=== PATIENT | female | born 1955 | race Caucasian/White ===

== ENCOUNTER 2018-03-26 11:41 | Emergency (ER) | payer MEDICAID ==
--- NOTE | 2018-03-26 11:46 | EDM.PDOC ---
<Shellie Saravia R - Last Filed: 03/26/18 12:11> ED HPI GENERAL MEDICAL PROBLEM - General Chief Complaint: Neuro Symptoms/Deficits Stated Complaint: DIZZY SPELLS Time Seen by Provider: 03/26/18 12:00 Source of Information: Reports: Patient, RN, RN Notes Reviewed History Limitations: Reports: No Limitations - History of Present Illness INITIAL COMMENTS - FREE TEXT/NARRATIVE: Patient presents to the Emergency department with complaints of dizziness and nausea. She has had the dizziness and nausea for one week with sudden onset when getting up to the bathroom. No known triggers. She vomited once last week. The dizziness is worsened when patient turns her head. Describes dizziness as the room spinning. Denies falling but has almost fallen multiple times. She has had decreased appetite. Dizziness is limiting her activity. Denies fever and chills. Had a cold last month. She reports history of anxiety and feels anxious currently. Denies previous episode of dizziness. Onset: Sudden Onset Date: 03/19/18 Onset Time: 05:00 Duration: Week(s): (1), Getting Worse Improves with: Reports: None Worsens with: Reports: None Associated Symptoms: Reports: Nausea/Vomiting, Other (no vision changes). Denies: Headaches, Syncope - Related Data Allergies Allergy/AdvReac Type Severity Reaction Status Date / Time No Known Allergies Allergy Verified 03/26/18 12:01 Home Meds: Home Meds . [No Known Home Meds] 08/10/17 [History] Past Medical History HEENT History: Reports: None Cardiovascular History: Reports: None Respiratory History: Reports: None Gastrointestinal History: Reports: Irritable Bowel Syndrome Genitourinary History: Reports: None [employer] History: Reports: None Musculoskeletal History: Reports: Arthritis Neurological History: Reports: None Psychiatric History: Reports: Anxiety Endocrine/Metabolic History: Reports: None Hematologic History: Reports: None Immunologic History: Reports: None Oncologic (Cancer) History: Reports: None Dermatologic History: Reports: None - Infectious Disease History Infectious Disease History: Reports: Chicken Pox, Measles, Mumps - Past Surgical History Head Surgeries/Procedures: Reports: None Other Female Surgeries/Procedures: patient states breast, cervical and ovarian cysts Other Musculoskeletal Surgeries/Procedures:: 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 ED EXAM, DIZZINESS - Physical Exam Exam: See Below Exam Limited By: No Limitations General Appearance: Alert, WD/WN, No Apparent Distress Eye Exam: Bilateral Eye: Nystagmus Nystagmus: worsens with head to R, reproducible (greyson-hallpike manvuer) Ears: Normal External Exam, Normal Canal, Hearing Grossly Normal, Normal TMs Nose: Normal Inspection, Normal Mucosa, No Blood Throat/Mouth: Normal Inspection, Normal Lips (dry lips), Normal Oropharynx, Normal Voice, No Airway Compromise Head Exam: Atraumatic, Normocephalic Vertigo: reproducible (postion changes) Neck: Normal Inspection, Supple, Non-Tender, Full Range of Motion Respiratory/Chest: No Respiratory Distress, Lungs Clear, Normal Breath Sounds, No Accessory Muscle Use, Chest Non-Tender Cardiovascular: Normal Peripheral Pulses, Regular Rate, Rhythm, No Edema, No Gallop, No JVD, No Murmur, No Rub GI/Abdominal: Normal Bowel Sounds, Soft, Non-Tender, No Organomegaly, No Distention, No Abnormal Bruit, No Mass Neurological: Alert, Normal Mood/Affect, Normal Dorsiflexion, CN II-XII Intact, Normal Plantar Flexion, Normal Gait, Normal Reflexes, No Motor/Sensory Deficits , Oriented x 3 Back Exam: Normal Inspection, Full Range of Motion, NT Extremities: Normal Inspection, Normal Range of Motion, Non-Tender, No Pedal Edema, Normal Capillary Refill Psychiatric: Normal Affect, Anxious Skin Exam: Warm, Dry, Intact, Normal Color, No Rash Course - Vital Signs Last Recorded V/S: Last Vital Signs Temp 36.6 C 03/26/18 11:55 Pulse 66 03/26/18 11:55 Resp 17 03/26/18 11:55 BP 157/101 H 03/26/18 11:55 Pulse Ox 91 L 03/26/18 11:55 Orthostatic Blood Pressure [ 142/104 Standing] Orthostatic Blood Pressure [ 139/94 Sitting] Orthostatic Blood Pressure [ 144/86 Supine] - Orders/Labs/Meds Orders: Active Orders 24 hr Category Date Time Status Orthostatic Vital Signs [RC] ASDIRECTED Care 03/26/18 12:06 Active UA RFX DASIA AND CULT IF INDIC [URIN] Urgent Lab 03/26/18 12:06 Ordered Labs: Laboratory Tests 03/26/18 03/26/18 Range/Units 12:14 12:14 WBC 12.2 H (5.0-10.0) 10^3/uL RBC 4.15 L (4.2-5.4) 10^6/uL Hgb 13.2 (12.0-16.0) g/dL Hct 40.2 (37.0-47.0) % MCV 96.9 (80-100) fL MCH 31.8 (27.0-34.0) pg MCHC 32.8 L (33.0-35.0) g/dL Plt Count 335 (150-450) 10^3/uL Neut % (Auto) 69.3 (42.2-75.2) % Lymph % (Auto) 23.4 (20.5-50.1) % [place] % (Auto) 6.1 (2-8) % Eos % (Auto) 1.0 (1.0-3.0) % Baso % (Auto) 0.2 (0.0-1.0) % Sodium 136 (135-145) mmol/L Potassium 4.3 (3.6-5.0) mmol/L Chloride 103 (101-111) mmol/L Carbon Dioxide 21.0 (21.0-31.0) mmol/L Anion Gap 16.3 BUN 18 (7-18) mg/dL Creatinine 0.7 (0.6-1.3) mg/dL Est Cr Clr Drug Dosing 77.01 mL/min Estimated GFR (MDRD) > 60 BUN/Creatinine Ratio 25.71 Glucose 118 H (74-105) mg/dL Calcium 9.6 (8.4-10.2) mg/dl Total Bilirubin 0.4 (0.2-1.0) mg/dL AST 22 (10-42) IU/L ALT 18 (10-60) IU/L Alkaline Phosphatase 70 (42-121) IU/L Total Protein 7.1 (6.7-8.2) g/dl Albumin 4.2 (3.2-5.5) g/dl Globulin 2.9 Albumin/Globulin Ratio 1.45 - Re-Assessments/Exams Free Text/Narrative Re-Assessment/Exam: 03/26/18 12:45 J. Brekhus (Physical Therapy) at bedside. Lacrosse- Hallpike maneuvers indicated right Benign Paroxysmal Positional Vertigo. Kev maneuvers done. Patient to follow up in Physical Therapy tomorrow. Departure - Departure Time of Disposition: 12:48 Disposition: Home, Self-Care 01 Condition: Fair Clinical Impression: Benign paroxysmal positional vertigo Qualifiers: Laterality: right Qualified Code(s): H81.11 - Benign paroxysmal vertigo, right ear - Discharge Information *PRESCRIPTION DRUG MONITORING PROGRAM REVIEWED*: Not Applicable *COPY OF PRESCRIPTION DRUG MONITORING REPORT IN PATIENT LUIS A: Not Applicable Instructions: Benign Positional Vertigo Forms: ED Department Discharge Additional Instructions: RX: Maclizine 25mg (Do not drive while taking this medication) Referral to be made by PCP for Physical therapy. Do not lay flat or on the right side for next 2 days. Sleep in recliner is possible. <Maxim Woodruff - Last Filed: 03/26/18 12:57> Course - Re-Assessments/Exams Free Text/Narrative Re-Assessment/Exam: 03/26/18 12:56 I personally performed or re-performed the physical examination and medical decision making. I have verified all student documentation or findings, including history, physical exam and/or medical decision making.
[2018-03-26 12:41] LABS: ANION GAP 16.3; CHLORIDE,CL 103 mmol/L (101-111); SODIUM,NA 136 mmol/L (135-145)
== END 2018-03-26 13:03 | disposition home or self-care (01) ==
LOC: DL.ED 11:41
DX: H81.11 Benign paroxysmal vertigo, right ear (principal)
CPT/HCPCS: 36415; 80053; 85025; 99284

== ENCOUNTER 2024-07-18 14:47 | Emergency (ER) | payer MEDICARE, MEDICAID ==
[2024-07-18 15:32] LABS: APPEARANCE,URINE SLIGHTLY CLOUDY (CLEAR); BILIRUBIN,URINE NEGATIVE (NEGATIVE); COLOR,URINE YELLOW (YELLOW); GLUCOSE,URINE NEGATIVE (NEGATIVE); KETONES,URINE NEGATIVE (NEGATIVE); LEUKOCYTE ESTERASE,URINE NEGATIVE (NEGATIVE); NITRITE,URINE NEGATIVE (NEGATIVE); OCCULT BLOOD,URINE NEGATIVE (NEGATIVE); PROTEIN,URINE NEGATIVE (NEGATIVE); UROBILINOGEN,URINE 0.2 mg/dL (0.2-1.0)
[2024-07-18 15:55] LABS: BASOPHILS PERCENT AUTO 0.3 % (0.0-1.0); EOSINOPHILS PERCENT AUTO 0.1 % (1.0-3.0); HEMATOCRIT 35.9 % (37.0-47.0); LYMPHOCYTES PERCENT AUTO 11.2 % (20.5-50.1); MEAN CORPUSCULAR HEMOGLOBIN 32.8 pg (27.0-34.0); MEAN CORPUSCULAR HGB CONC 33.4 g/dL (33.0-35.0); MEAN CORPUSCULAR VOLUME 98.1 fL (80-100); MONOCYTES PERCENT AUTO 4.1 % (2-8); NEUTROPHILS PERCENT AUTO 84.3 % (42.2-75.2); PLATELET COUNT,PLT 399 10^3/uL (150-450); RED BLOOD CELL COUNT 3.66 10^6/uL (4.2-5.4); WHITE BLOOD CELL COUNT,WBC 11.7 10^3/uL (5.0-10.0)
[2024-07-18 16:14] LABS: A/G RATIO 1.4; ALBUMIN 4.3 g/dL (3.4-5.0); ANION GAP 13.9 mEq/L (7-13); BILIRUBIN TOTAL 0.4 mg/dL (0.2-1.0); CALCIUM 10.3 mg/dL (8.5-10.1); EST CRCL DRUG DOSING (CG) 60.45 mL/min; POTASSIUM,K 3.9 mmol/L (3.5-5.1); PROTEIN TOTAL,TP 7.4 g/dL (6.4-8.2)
[2024-07-18] MEDS: Ondansetron 4 MG/2 ML SDV IVPUSH ONE (17:30)
[2024-07-18] MEDS: Ketorolac 30 MG/ML SDV IVPUSH ONE (17:30)
[2024-07-24 05:47] LABS: CA 125 69 U/mL (<=38); CA 19-9 4 U/mL (<=35)
== END 2024-07-18 19:26 | disposition home or self-care (01) ==
LOC: DL.ED 14:47
DX: R33.9 Retention of urine, unspecified (principal); R19.00 Intra-abdominal and pelvic swelling, mass and lump, unspecified site
CPT/HCPCS: 36415; 51702; 51798; 74177; 80053; 81003; 82378; 85025; 86301; 86304; 96374; 96375; 99284; C1758; J1885; J2405